=== PATIENT | female | born 1940 | race American Indian/Alaskan Native ===

== ENCOUNTER 2017-12-26 11:14 | Outpatient (CLI) | payer MEDICARE ==
--- NOTE | 2017-12-26 16:30 | Ultrasound Report ---
Complete abdominal ultrasound: Abdominal pain. The liver demonstrates a slightly increased echogenic pattern with no focal finding. The spleen is unremarkable. The pancreas is not well-visualized there is no gross abnormality or mass appreciated. The gallbladder is echogenically unremarkable. The CBD diameter is 6 mm. The right renal length is 10.9 cm and the left is 10.7 cm. Both kidneys are echogenically unremarkable. The proximal abdominal aortic diameter is 16 mm in the mid aorta is approximately 17 mm. The distal aorta is obscured. CBD diameter on CT scan in 2016 is essentially the same. Impressions: Suspicion of mild hepatic steatosis.
== END 2017-12-26 11:15 | disposition home or self-care (01) ==
LOC: SPVWC 11:14
PROVIDERS: ATTEND Internal Medicine
DX: R10.9 Unspecified abdominal pain (principal)
CPT/HCPCS: 76700

== ENCOUNTER 2019-06-15 10:42 | Outpatient (CLI) | payer MEDICARE ==
[2019-06-15 12:04] LABS: Blood Urea Nitrogen 13 mg/dL (7-17)
--- NOTE | 2019-06-15 15:00 | Cat Scan Report ---
CT ABDOMEN AND PELVIS WITH CONTRAST HISTORY: ABDOMINAL PAIN(R10.9) COMPARISON: 01/22/2016 TECHNIQUE: Axial CT images were obtained through the abdomen and pelvis after 100 cc of Omnipaque 300 intravenously. Sagittal and coronal reformatted images. All CT scans at this location are performed using CT dose reduction for ALARA by means of automated exposure control. FINDINGS: CT ABDOMEN: Lung Bases: Clear. Liver: There is moderate diffuse fatty infiltration throughout the liver. 1 cm cavernous hemangioma i s noted in the inferior right hepatic lobe. No suspicious mass. Biliary: No significant abnormality. Spleen: No significant abnormality. Unenlarged. Pancreas: No significant abnormality. Adrenals: 1 cm low-density left adrenal nodule is unchanged. The right adrenal gland is unremarkable. Kidneys: No significant abnormality. Lymphatics: No lymphadenopathy. Vasculature: Moderate atherosclerotic disease in the aorta. There is minimal fusiform dilatation of t he distal aorta measuring 2.4 cm. Moderate to severe iliac artery calcifications are also noted. Dens e calcifications with suspected stenosis is identified in the superior mesenteric artery. The celiac axis and [place] are unremarkable. Bowel/Peritoneum: There are scattered diverticula in the distal descending and sigmoid colon. The rem aining bowel loops are unremarkable. No evidence for obstruction or focal inflammation. No free fluid or free air. The appendix is not confidently identified, correlate with surgical history. CT PELVIS: : No significant abnormality. Osseous Structures: No significant abnormality. Additional Findings: None IMPRESSION: No acute process is identified. Fatty infiltration of the liver. Moderate atherosclerotic disease as described. Diverticulosis of the distal colon. Probable 1 cm left adrenal adenoma. Signer Name: Gilbert Hanna Jr, MD Signed: 06/15/2019 2:56 PM Workstation Name: [id number]
== END 2019-06-15 10:43 | disposition home or self-care (01) ==
LOC: CT 10:42
PROVIDERS: ATTEND Internal Medicine
DX: K57.30 Diverticulosis of large intestine without perforation or abscess without bleeding (principal); K76.0 Fatty (change of) liver, not elsewhere classified; E78.00 Pure hypercholesterolemia, unspecified; J44.9 Chronic obstructive pulmonary disease, unspecified; Z90.710 Acquired absence of both cervix and uterus
CPT/HCPCS: 36415; 74177; 82565; 84520; Q9967